=== PATIENT | male | born 1950 | race African-American/Black ===

== ENCOUNTER 2016-11-23 14:11 | Emergency (ER) | payer MEDICARE ==
--- NOTE | ~2016-11-23 | CR281 ---
[facility] A Service of [facility] / [facility] RADIOLOGY TEXT RESULTS PATIENT: GUILHERME NULL LOCATION: CFTX : 46 UNIT #: [id number] AGE: [address]: Mary Lou Harrison SEX: M ORDER DR: [id number] [facility] [address] [place], [place] [address] [id number] E MR#: [id number] Acc #: [id number] NAME: GUILHERME NULL. : 1950 SEX: M STUDY DATE/TIME: 11/23/2016 13:54 UNIT: [facility] ROOM: STUDY DESCRIPTION: CR Wrist Min 3 View Lt Attending Physician: Mary Lou Harrison P.A.-C. Ordering Physician: Mary Lou Harrison P.A.-C. Primary Care Physician: Avtar Ortega M.D. MEDICAL IMAGING REPORT This report is preliminary unless electronic signature is present EXAM Left wrist 11/23/2016 INDICATIONS 66-year-old male with wrist pain. Fell to catch himself today. TECHNIQUE 3 views left wrist COMPARISON No comparisons FINDINGS The examination is abnormal. There is an impacted angulated complete fracture of the distal radius. On the lateral projection there is apex volar angulation of the largest distal fracture fragment. The fracture is partially comminuted and the impaction is on the order of about 1-1.5 cm. There is soft tissue swelling. Despite the fracture, the alignment is preserved on the lateral view. IMPRESSION Complete impacted angulated fracture of the distal radius with soft tissue swelling. Impaction is on the order about a centimeter. STAT * RESULT Dictated by... Fuad Kimble M.D. THIS IS AN ELECTRONICALLY VERIFIED REPORT Fuad Kimble M.D. at 11/23/2016 4:21 PM [facility] A Service of [facility] RADIOLOGY TEXT RESULTS PATIENT: GUILHERME NULL LOCATION: [facility] : 46 UNIT #: [id number] AGE: [address]: Mary Lou Harrison SEX: M ORDER DR: ERON/genet TD: 11/23/2016 14:58 JOB #: [id number] MEDICAL IMAGING REPORT Page 1 of 1 COPY
== END 2016-11-23 14:17 | disposition home or self-care (01) ==
LOC: CFTX 14:11
DX: S52.502A Unspecified fracture of the lower end of left radius, initial encounter for closed fracture (principal); I11.0 Hypertensive heart disease with heart failure; I50.9 Heart failure, unspecified; E78.5 Hyperlipidemia, unspecified; E11.9 Type 2 diabetes mellitus without complications; J44.9 Chronic obstructive pulmonary disease, unspecified; I25.2 Old myocardial infarction; F17.210 Nicotine dependence, cigarettes, uncomplicated; Z88.0 Allergy status to penicillin; Z88.8 Allergy status to other drugs, medicaments and biological substances; X58.XXXA Exposure to other specified factors, initial encounter; Y92.9 Unspecified place or not applicable
CPT/HCPCS: 73110; 99283